=== PATIENT | male | born 1965 | race African-American/Black ===

== ENCOUNTER 2018-07-10 02:27 | Emergency (ER) | payer MEDICAID ==
[~2018-07-10] VITALS: Ht 182.9 cm; Wt 12.0 kg
[2018-07-10] MEDS ORDERED: KETOROLAC 30MG/ML VIAL IV ONE (03:30)
[2018-07-10 05:00] VITALS: BP 119/66
== END 2018-07-10 05:02 | disposition home or self-care (01) ==
LOC: ER 02:27
DX: M94.0 Chondrocostal junction syndrome [Tietze] (principal); I10 Essential (primary) hypertension; I48.91 Unspecified atrial fibrillation
CPT/HCPCS: 71046; 96374; 99283; J1885